=== PATIENT | male | born 1980 | race Caucasian/White ===

== ENCOUNTER 2024-08-25 09:44 | Emergency (ER) | payer MEDICAID ==
[~2024-08-25] VITALS: Ht 185.4 cm; Wt 100.0 kg
[2024-08-25 10:04] VITALS: BP 143/68; TEMP 97.6
[2024-08-25 11:24] VITALS: PULSE 70; RESP 18; O2SAT 97
== END 2024-08-25 11:26 ==
LOC: ER 09:45
DX: S50.02XA Contusion of left elbow, initial encounter (principal); F17.200 Nicotine dependence, unspecified, uncomplicated; W22.8XXA Striking against or struck by other objects, initial encounter; Y93.89 Activity, other specified; Y92.89 Other specified places as the place of occurrence of the external cause; Y99.8 Other external cause status
CPT/HCPCS: 73080; 73100; 99284